=== PATIENT | male | born 1980 ===

== ENCOUNTER 2018-09-07 10:13 | Emergency (ER) | payer OTHER ==
[2018-09-07 10:29] VITALS: BMI 18.6
[2018-09-07 10:37] VITALS: TEMP 98.1
[2018-09-07] MEDS ORDERED: TDAP Vaccine 0.5 mL Syr IM ONE (10:50)
--- NOTE | 2018-09-07 11:57 | ED PDOC ---
Arrival/HPI - General Chief Complaint: Abnormal Skin Integrity Time Seen by Provider: 09/07/18 10:23 Historian: Patient - History of Present Illness Narrative History of Present Illness (Text): 09/07/18 11:54 38-year-old male presents today with a laceration to the right third finger status post cutting it with a electric saw. Patient is complaining of pain swelling and limited range of motion of the finger. Incident occurred prior to arrival. Patient is unsure of his last tetanus shot. Patient is complaining of decreased sensation to the distal tip of the finger. No fevers or chills. No other complaints. Past Medical History - Provider Review Nursing Documentation Reviewed: Yes - Travel History Have you recently traveled outside [place] w/in the past 3 mons?: No - Cardiac Hx Cardiac Disorders: No - Psychiatric Hx Substance Use: No - Anesthesia Hx Anesthesia: No Hx Anesthesia Reactions: No Hx Malignant Hyperthermia: No Family/Social History - Physician Review Nursing Documentation Reviewed: Yes Family/Social History: Unknown Family HX Smoking Status: Never Smoked Hx Alcohol Use: No Hx Substance Use: No Allergies/Home Meds Allergies/Adverse Reactions: Allergies No Known Allergies Allergy (Verified 09/07/18 10:29) Review of Systems - Review of Systems Constitutional: absent: Fatigue, Fevers Respiratory: absent: SOB, Cough Cardiovascular: absent: Chest Pain, Palpitations Gastrointestinal: absent: Abdominal Pain, Nausea, Vomiting Musculoskeletal: Arthralgias Skin: Laceration Psychiatric: absent: Anxiety, Depression Physical Exam Vital Signs Reviewed: Yes Vital Signs Temp Pulse Resp BP Pulse Ox 09/07/18 10:37 98.1 F 67 18 117/68 100 Temperature: Afebrile Blood Pressure: Normal Pulse: Regular Respiratory Rate: Normal Appearance: Positive for: Well-Appearing, Non-Toxic, Comfortable Pain Distress: None Mental Status: Positive for: Alert and Oriented X 3 - Systems Exam Head: Present: Atraumatic Mouth: Present: Moist Mucous Membranes Neck: Present: Normal Range of Motion Respiratory/Chest: Present: Clear to Auscultation, Good Air Exchange. No: Respiratory Distress, Accessory Muscle Use Cardiovascular: Present: Regular Rate and Rhythm, Normal S1, S2. No: Murmurs Upper Extremity: Present: NORMAL PULSES, Tenderness (+ ttp over medial aspect of distal finger. ), Swelling (to distal and middle phalanx.), Capillary Refill < 2s, Other (right 3rd finger; there is a 4cm jagged laceration along the lateral aspect of the finger extending from proximal to the PIP joint to the tip of the finger underneath the nail. ). No: Normal ROM (limited flexion/extension of finger. ), Erythema, Neurovascularly Intact (decreased sensation on lateral aspect of distal and middle phalanx.) Lower Extremity: Present: Normal ROM Neurological: Present: GCS=15 Skin: Present: Warm, Dry, Normal Color Psychiatric: Present: Alert, Oriented x 3 Medical Decision Making ED Course and Treatment: 09/07/18 12:00 Patient is nontoxic well appearing in no distress. Vital signs are stable. Wound irrigated well with high pressure irrigation Tetanus updated xray; FINDINGS: RIGHT MIDDLE FINGER: There is a displaced fracture at the distal portion of the distal phalanx of the right middle finger noted in the lateral view focal cortical irregularity and possible small erosion noted also at the distal phalanx of the right middle finger. Remainder of the right hand (as seen on the AP view) grossly unremarkable. JOINTS: Normal. SOFT TISSUES: Soft tissue swelling seen in the distal portion of the right middle finger OTHER FINDINGS: None. IMPRESSION: Fracture at the distal phalanx of the right middle finger. Possible focal cortical erosion at the distal phalanx of the right middle finger. ancef 1g IV 09/07/18 14:[address] Fontenot in depth; He reviewed images/xrays. he will come to ER for repair. 09/07/18 18:40 Patient was seen in the emergency room and evaluated by Dr. Fontenot. Laceration was repaired by Dr. Fontenot in the ER. Patient is to be discharged home with Keflex and follow-up in the office on Monday morning (3 days).He was advised to return immediately if signs of infection develop: High fevers, increasing pain, increasing redness, increasing swelling, purulent discharge. 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 Impression: Laceration, finger, finger fracture Motrin every 6 hours as needed for pain keflex: 1 capsule 4 times daily x 7 days. Keep the wound clean and dry, apply bacitracin twice daily Return immediately if signs of infection develop: High fevers, increasing pain, redness, swelling, purulent discharge Follow up with Dr. Fontenot on Monday in the office. Followup with primary care physician within the next 2 days Return if any other concerning symptoms develop - RAD Interpretation Radiology Orders: 09/07/18 10:49 HAND RIGHT 3RD DIGIT (FINGER) [RAD] Stat - Medication Orders Current Medication Orders: Discontinued Medications Tetanus/Reduced Diphtheria/Acell Pertussis (Boostrix Vaccine Inj) 0.5 ml IM .ONCE ONE Stop: 09/07/18 10:51 Last Admin: 09/07/18 11:47 Dose: 0.5 ml Immunization Registry Document 09/07/18 11:47 [place] (Rec: 09/07/18 11:49 [place] [id number]) [facility]-Date provided 09/07/18Sep Immunization Data Document 09/07/18 11:47 [place] (Rec: 09/07/18 11:49 [place] [id number]) Immunization Data Vaccine Information Sheet Given Yes Disposition/Present on Arrival - Present on Arrival Any Indicators Present on Arrival: No History of DVT/PE: No History of Uncontrolled Diabetes: No Urinary Catheter: No History of Decub. Ulcer: No History Surgical Site Infection Following: None - Disposition Have Diagnosis and Disposition been Completed?: Yes Diagnosis: Laceration of finger, Finger fracture Disposition: HOME/ ROUTINE Disposition Time: 14:21 Patient Plan: Discharge Patient Problems: Current Active Problems Problem Status Onset Finger fracture Acute Laceration of finger Acute Condition: GOOD Discharge Instructions (ExitCare): Finger Fracture, Laceration Repair With Stitches (DC) Additional Instructions: Motrin every 6 hours as needed for pain keflex: 1 capsule 4 times daily x 7 days. Keep the wound clean and dry, apply bacitracin twice daily Return immediately if signs of infection develop: High fevers, increasing pain, redness, swelling, purulent discharge Follow up with Dr. Fontenot on Monday in the office. Followup with primary care physician within the next 2 days Return if any other concerning symptoms develop Prescriptions: Cephalexin [Keflex] 500 mg PO QID #28 capsule Ibuprofen [Motrin Tab] 400 mg PO Q6H PRN #20 tab PRN Reason: Pain, Mild (1-3) Referrals: John Paul Fontenot MD [Staff Provider] - Follow up with primary [facility] [Outside] - Follow up with primary Lexie Reyes MD [Medical Doctor] - Follow up with primary Forms: [facility] (Liberian), WORK NOTE
--- NOTE | 2018-09-07 12:40 | RAD ---
Date of service: 09/07/2018 PROCEDURE: Right middle finger radiographs. HISTORY: laceration finger COMPARISON: None. TECHNIQUE: AP radiograph of the right hand, as well as spot oblique and lateral images of right middle finger were obtained. FINDINGS: RIGHT MIDDLE FINGER: There is a displaced fracture at the distal portion of the distal phalanx of the right middle finger noted in the lateral view focal cortical irregularity and possible small erosion noted also at the distal phalanx of the right middle finger. Remainder of the right hand (as seen on the AP view) grossly unremarkable. JOINTS: Normal. SOFT TISSUES: Soft tissue swelling seen in the distal portion of the right middle finger OTHER FINDINGS: None. IMPRESSION: Fracture at the distal phalanx of the right middle finger. Possible focal cortical erosion at the distal phalanx of the right middle finger.
[2018-09-07] MEDS ORDERED: ceFAZolin 1 gm in NS 1 GM/100 ML BAG IVPB ONE (14:00)
[2018-09-07] MEDS ORDERED: Lidocaine 2% Inj (20ml) IJ STA (17:48)
[2018-09-07 19:44] VITALS: BP 118/68; PULSE 73; RESP 17; O2SAT 99
--- NOTE | 2018-09-19 21:14 | OP ---
PROCEDURE DATE: 09/07/2018 SURGEON: John Paul Fontenot MD PREOPERATIVE DIAGNOSES: 1. Right third digit open distal phalanx fracture. 2. Right finger complex open wound. 3. Right third digit nail bed injury. POSTOPERATIVE DIAGNOSES: 1. Right third digit open distal phalanx fracture. 2. Right finger complex open wound. 3. Right third digit nail bed injury. PROCEDURES: 1. Open fracture debridement of bone and tendon. 2. Complex wound closure. 3. Wound exploration. 4. Nail bed repair. ANESTHESIA: Local digital block. COMPLICATIONS: None. INDICATIONS: This is a 38-year-old right-hand dominant male who injured his right finger at construction. The patient sustained a partial laceration of his distal phalanx of the third digit. He presented to the Emergency Room at [facility] where I evaluated the patient. The patient underwent the above procedure. DESCRIPTION OF PROCEDURE: Informed consent was obtained. Risks and benefits were explained. Right hand was prepped and draped in a standard surgical fashion with Betadine dressing. Digital nerve block to the finger was performed with lidocaine 3 mL. Right third digit was then evaluated. There was a complex wound laceration over the radial and ulnar side of the finger deep to the level of the distal phalanx. The wound was opened and explored. The distal phalanx was debrided with irrigation, rongeur and curettes. The flexor tendon was identified and was intact. The nail plate was also intact with some subungual hematoma. There was partial laceration of the nail bed at the radial insertion corner. After thorough debridement of the bone and tendon, work on closing the complex wound began. The wound was 4 cm in length, longitudinal over the radial side of the digit. Local tissue advancement was performed to close the gap of the wound followed by repair with 4-0 Monocryl interrupted sutures. The nail bed was also repaired with a 4-0 Monocryl. After completion, sterile dressing was applied with Xeroform, 4x4, and Rj. The patient tolerated the procedure well and to be placed on antibiotics prophylactically and follow up in my office in one week for wound check. John Paul Fontenot MD [facility] # [id number] MTDD
== END 2018-09-07 19:44 | disposition home or self-care (01) ==
LOC: ED 10:13
DX: S62.632B Displaced fracture of distal phalanx of right middle finger, initial encounter for open fracture (principal); W29.8XXA Contact with other powered hand tools and household machinery, initial encounter; Z23 Encounter for immunization
CPT/HCPCS: 11012; 14040; 73140; 90471; 90715; 96365; 99283; J0690